=== PATIENT | female | born 1975 | race Asian ===

== ENCOUNTER 2019-07-07 16:48 | Emergency (ER) | payer MEDICAID ==
[~2019-07-07] VITALS: Ht 154.9 cm; Wt 60.3 kg
[2019-07-07 16:58] VITALS: Ht 154.9 cm; Wt 60.3 kg
[2019-07-07 20:15] VITALS: BP 124/74
== END 2019-07-07 20:15 | disposition home or self-care (01) ==
LOC: ED 16:48
DX: M54.41 Lumbago with sciatica, right side (principal)
CPT/HCPCS: J1885